=== PATIENT | male | born 1970 | race Two or more races ===

== ENCOUNTER 2024-09-28 08:00 | Day surgery (SDC) | payer MEDICAID, SELFPAY ==
--- NOTE | 2024-09-26 23:00 | ESHP_ITS ---
RE: NICHOLE MANZANO : 1970 DATE OF ADMISSION: 09/28/2024 DATE OF SURGERY: 09/28/2024 HISTORY OF PRESENT ILLNESS: This patient is a 53-year-old male who speaks very good [place]. He is complaining of mass over his left upper arm, which has been present for about 30 to 40 years. It has become recently larger and he wants to get this removed. The patient does not have any significant medical illness. PAST SURGICAL HISTORY: The patient's past surgical history consisted of repair of the umbilical hernia. PHYSICAL EXAMINATION: VITAL SIGNS: Vital signs revealed temperature of 98.5, pulse 74, BP 145/85. GENERAL: He is 5 feet 3 inches tall, weighing 234 pounds with BMI of 41.5. HEENT: Head normal. Eyes are normal. Ears normal. NECK: Normal. CHEST: Chest revealed good breath sounds on both sides. HEART: Sinus rhythm. No murmurs. EXTREMITIES: Examination of the left upper extremity posteriorly revealed a 6 cm soft tissue mass, which appears to be a lipoma. IMAGING: The patient had an ultrasound of this area which showed 6.2 x 5.4 cm mass suggesting lipoma. IMPRESSION: 1. Benign soft tissue mass, left upper extremity. 2. Obesity. COURSE OF ACTION: I advised the patient to undergo excision of this mass under general anesthesia. It can also be done under monitored anesthesia in the hospital. This anesthesia will be decided at the time of surgery. The patient is agreeable to proceed with local anesthesia with sedation and will make a decision at the time of surgery. DT: :03:33 TT: 22:58:00 Ref: [id number] - TID: [id number]
[2024-09-27 10:00] VITALS: BMI 35.2
[2024-09-27 10:55] LABS: Basophils # (Auto) 0.1 Thou/mm3 (0.0-0.2); Basophils % (Auto) 1 % (0-2.5); Eosinophils # (Auto) 0.1 Thou/mm3 (0.0-0.5); Eosinophils % (Auto) 2 % (0-10); Hematocrit 42.4 % (41.0-53.0); Hemoglobin 14.2 g/dL (13.5-16.0); Immature Granulocytes % (Auto) 0 % (0-0); Immature Granulocytes Auto 0.03 Thou/mm3 (0.00-0.00); Lymphocytes # (Auto) 2.3 Thou/mm3 (1.0-4.8); Lymphocytes % (Auto) 31 % (10-50); Mean Corpuscular HGB Conc 33.5 g/dl (31.0-37.0); Mean Corpuscular Hemoglobin 31.3 pg (25.0-35.0); Mean Corpuscular Volume 94 fL (80-100); Monocytes # (Auto) 0.5 Thou/mm3 (0.0-0.8); Monocytes % (Auto) 7 % (0-12); Neutrophils # (Auto) 4.4 Thou/mm3 (1.8-7.7); Neutrophils % (Auto) 60 % (37-80); Nucleated Red Blood Cell % 0 /100 WBC (0); Platelet Count 270 Thou/mm3 (140-440); RDW Standard Deviation 43.2 fL (35.1-43.9); Red Blood Count 4.53 Miln/mm3 (4.50-5.90); White Blood Count 7.4 Thou/mm3 (3.8-10.6)
[2024-09-27 11:07] LABS: Partial Thromboplastin Time 25.8 Seconds (22.0-36.0); Prothrombin Time 10.8 Seconds (9.0-12.2)
[2024-09-27 11:12] LABS: Alanine Aminotransferase 40 U/L (10-49); Albumin, Serum 4.9 gm/dL (3.5-5.0); Albumin/Globulin Ratio 1.6 (1.2-2.2); Alkaline Phosphatase 74 U/L (46-116); Anion Gap 8 (7-16); Aspartate Amino Transferase 22 U/L (0-34); BUN/Creatinine Ratio 14 Ratio (12-20); Bilirubin,Total 1.2 mg/dL (0.3-1.2); Blood Urea Nitrogen 14 mg/dL (9-23); Calcium 9.6 mg/dL (8.3-10.6); Calcium (Corrected) 9.6 mg/dL (8.5-10.1); Carbon Dioxide 25.3 mMol/L (20.0-31.0); Chloride 105 mMol/L (98-107); Estimated Creatinine Clearance 101.6 mL/min (>60); Globulin 3.1 gm/dL (2.3-3.5); Glucose 105 mg/dL (74-106); Osmolality,Calculated 276 (275-295); Potassium 4.2 mMol/L (3.4-5.1); Sodium 138 mMol/L (136-145); eGFR > 60 See Note
[2024-09-28] VITALS (7 sets, daily range): BP systolic 108–144; BP diastolic 68–91; PULSE 68–83; RESP 12–20; TEMP 36.3–36.9; O2SAT 93–97; BMI 34.9
[2024-09-28] MEDS: RINGERS LACTATED 500 ML 500 ML 20 ML IV (09:11)
--- NOTE | 2024-09-28 11:20 | SUR.PHASEII ---
pt arrived to PACU via gurney drowsy but arouses to verbal commands, breathing unlabored, dressing to left shoulder clean, dry, and intact, report from Yvan ACUNA and Dr Somers
--- NOTE | 2024-09-28 11:45 | SUR.PHASEII ---
pt meets discharge criteria, awaiting discharge orders
--- NOTE | 2024-09-28 11:54 | PD.SUROPNT ---
Date of Procedure 09/28/24 Pre Op Diagnosis Soft tissue mass left upper arm Post Op Diagnosis Same Procedure Excision of the soft tissue mass left upper arm Findings Patient was found to have a 5 cm soft tissue mass which does not appear to be as classical lipoma Procedure Description After the patient was brought to the operating room he was kept on right lateral position. Then his left shoulder and the upper arm was washed with ChloraPrep solution and draped in a sterile manner. Timeout was performed. Then injected 1% Xylocaine with epinephrine over the mass which measured about 5 to 6 cm in diameter. Then I made a transverse incision along with the skin crease and dissected out the mass using USA retractors. The mass was well encapsulated and shelled out easily. However it was bloody requiring cautery for controlling bleeding. Then subcutaneous tissue was closed with interrupted 3-0 chromic and then used a 4-0 Monocryl for skin approximation. Dressing was applied with Adaptic and 4 x 4 gauze and patient tolerated procedure well. Anesthesia MAC Pathology / specimen Other (Soft tissue mass left upper arm) Estimated Blood Loss 30 Surgeon Nilda Fregoso MD Surgical Staff Operation Date: 09/28/24 10:45 Case Staff Anesthesiologist: Renzo Somers
--- NOTE | 2024-09-28 12:15 | SUR.PHASEII ---
pt awake, alert, able to follow commands, breathing unlabored, dressing to left shoulder clean, dry, and intact, pt able to dress self and ambulate to wheelchair with steady gait, discharge instructions given with spouse present, all questions answered, pt discharged via wheelchair with all belongings and copies of discharge paperwork.
== END 2024-09-28 12:15 | disposition home or self-care (01) ==
PROVIDERS: PCP Physician Assistant; Referring Provider Surgery; Visit Provider Surgery
PROC: (CPT 24071; principal; 2024-09-28 10:30)
DX: D17.0 Benign lipomatous neoplasm of skin and subcutaneous tissue of head, face and neck (principal); E66.9 Obesity, unspecified; Z68.41 Body mass index [BMI] 40.0-44.9, adult
CPT/HCPCS: 24071; 36415; 80053; 85025; 85610; 85730; A4649; J1200; J2250; J2704; J3010; J3490; J7120